=== PATIENT | male | born 1970 | race African-American/Black ===

== ENCOUNTER → 2017-06-14 | Day surgery (SDC) | payer OTHER ==
[~2017-06-14] MED LIST: ALBUTEROL17 GM INH; ANTIVERT PO; APRESOLINE PO; ASPIRINEC PO; DARVOCET-N 1001 TA2 PO; FLEXERIL PO; FLEXERIL10 MG PO; IBUPROFEN PO; LIPITOR PO; LOPRESSOR PO; LORTAB 5/500 TA1 TA1 PO; LORTAB 7.5-5001 TAB PO; MOBIC PO; MOTRIN600 M2 PO; NAPROSYN500 MG PO; NORVASC PO; ONDANSETRON ODT4 MG PO; PHENADOZ12.5 MG RC; ZANTAC150 M1 PO; ZITHROMAX1 G/PKT PO
--- NOTE | ~2017-06-14 | OR ---
Unit #: [id number] #: [id number] Patient: ILAN KING [id number] [address] [place], [place] [address] [id number] MR#: [id number] NAME: ILAN KING ROOM: Date of Procedure: 06/14/2017 Admission Date: 06/14/2017 Surgeon: Tono Lau M.D. : 1970 Attending Physician: Tono Lau M.D. Primary Care Physician: Piyush Santana M.D. OPERATIVE REPORT PREOPERATIVE DIAGNOSES The patient presented with history of hematochezia and right lower quadrant abdominal pain. He has come for elective colonoscopy. PROCEDURES PERFORMED Colonoscopy and polypectomy. POSTOPERATIVE DIAGNOSES 1. The patient had 2 polyps in the rectum and 1 in the descending colon. These were 5 to 7 mm each. All were removed using snare polypectomy. 2. Small internal hemorrhoids. 3. Moderate sigmoid and descending colon diverticulosis. 4. Rest of the examination up to cecum and terminal ileum was normal. The quality of the prep was excellent. RECOMMENDATIONS Reassurance is in order. The internal hemorrhoids were too small to require any banding or coagulation therapy. The patient requires a repeat colonoscopy in 5 years. SEDATION USED MAC. DESCRIPTION OF PROCEDURE Following detailed explanation of potential risks and complications of a colonoscopy, namely perforation, bleeding, and complications related to sedation, the patient was brought to GI lab and laid in the left lateral decubitus position. A digital rectal examination was performed, which was normal. Lubricated tip of the Olympus video colonoscope was inserted through the anus and advanced under direct vision. The scope was advanced and passed up to sigmoid into descending colon. Multiple small to medium-sized diverticula were noted in this area. The scope tip was then navigated all the way up to cecum with visualization of the ileocecal valve and the appendiceal orifice. Preparation was good with good visualization and photodocumentation was obtained. Successive segments of the colonic mucosa were examined upon withdrawal and the patient was noted to have 3 polyps, the first one was a descending colon polyp about 7 mm in size. It was removed using snare polypectomy. Two additional polyps were found in the rectum. These were 5 mm each and were also removed using snare polypectomy. All the 3 polyps were removed using snare polypectomy, retrieved and sent for histology. Other than the left-sided diverticulosis, the patient was also noted to have small internal Unit #: [id number] #: [id number] Patient: TOOGOOD,ILAN hemorrhoids at the anal verge seen on retroflexion. These were felt to be too small to require any intervention. The scope was then withdrawn. The patient returned to the recovery area. He tolerated the procedure without postprocedure complications. Dictated by... Agustina Cross/harriet TD: 06/14/2017 16:08 JOB #: [id number] OPERATIVE REPORT Page 1 of 1 X Tono Lau MD X PROCEDURE OPERATIVE NOTE
== END | disposition home or self-care (01) ==
LOC: COPS 10:29
DX: D12.4 Benign neoplasm of descending colon (principal); K64.8 Other hemorrhoids; K57.30 Diverticulosis of large intestine without perforation or abscess without bleeding; D12.8 Benign neoplasm of rectum; J45.909 Unspecified asthma, uncomplicated; Z88.0 Allergy status to penicillin; Z88.5 Allergy status to narcotic agent; Z91.018 Allergy to other foods; Z79.899 Other long term (current) drug therapy
CPT/HCPCS: 88305; J2250